=== PATIENT | male | born 1975 | race Caucasian/White ===

== ENCOUNTER 2016-09-05 17:19 | Inpatient (IN) | payer OTHER ==
[~2016-09-05] VITALS: Ht 190.5 cm; Wt 84.8 kg
[~2016-09-05 17:19] MED LIST: CHLORDIAZEPOXID25 MG PO; COUMADIN5 MG PO; DEPAKOTE250 MG PO; DEPAKOTE500 MG PO; ENOXAPARIN100 MG/1 M SC; FENTANYL1 EAC4 TD; FLEXERIL5 MG PO; FOLIC ACID1 MG PO; Habitrol,Nicoderm CQ TD; KEFLEX500 MG PO; KEPPRA500 MG PO; LEVETIRACETAM500 MG PO; LIBRIUM25 MG PO; LOVENOX80 MG/0.8 SC; Levaquin PO; METHADONE10 MG PO; METHADONE5 MG PO; MOTRIN600 MG PO; NEURONTIN100 MG PO; NICOTINE PATCH1 EAC2 TD; OXYCODONE HCL5 MG PO; OXYCODONE-APAP1 EACH PO; OXYCONTIN10 MG PO; PERCOCET 5/31 TABLET PO; POTASSIUM-9999 MG PO; PROAIR HFA8.5 GM IH; THIAMINE HCL100 MG PO; VITAMIN B-1100 MG PO; WARFARIN SODIU7.5 MG PO; WARFARIN SODIUM5 MG PO
[2016-09-05 20:20] LABS: HEMATOCRIT 40.9 % (38.0-50.0); MCH 33.5 PG (29.0-34.0); MCHC 34.7 G/DL (30.0-36.0); MCV 96.5 FL (86-99); MEAN PLAT.VOLUME 9.8 uM^3 (9.0-12.4); PLATELET COUNT 385 K/uL (156-360); RBC DIS.WIDTH-CV 12.2 % (11.8-14.6); RBC DIS.WIDTH-SD 41.7 % (39-53); RED BLOOD COUNT 4.24 M/uL (4.00-5.50); WHITE BLOOD COUNT 16.3 K/uL (4.1-10.2)
[2016-09-05 20:31] LABS: CHLORIDE 109 mEq/L (99-109); POTASSIUM 3.6 mEq/L (3.7-5.4); SODIUM 140 mEq/L (136-147)
[2016-09-05 20:33] LABS: GLUCOSE 96 mg/dL (70-99); INTER. NORMALIZED RATIO 2.3; PROTHROMBIN TIME 24.1 (9.2-11.2); PTT 40.6 (25-32)
[2016-09-05 20:35] LABS: ANION GAP 13 MEQ/L (2-14)
[2016-09-05 20:37] LABS: GFR ESTIMATE (CALCULATED) > 59 mL/min/
[2016-09-05 20:38] LABS: UREA NITROGEN (BUN) 11 mg/dL (9-23)
[2016-09-05] MEDS ORDERED: WARFARIN SODIUM10 MG PO ×2 (22:21)
[2016-09-05] MEDS ORDERED: VENTOLIN HFA18 GM IH (22:22)
[2016-09-05 23:49] VITALS: BP 125/75
[2016-09-06 05:10] VITALS: BP 126/80
[2016-09-06 06:40] LABS: HEMATOCRIT 36.6 % (38.0-50.0); MCH 33.5 PG (29.0-34.0); MCHC 34.2 G/DL (30.0-36.0); MCV 98.1 FL (86-99); MEAN PLAT.VOLUME 10.2 uM^3 (9.0-12.4); PLATELET COUNT 340 K/uL (156-360); RBC DIS.WIDTH-CV 12.6 % (11.8-14.6); RBC DIS.WIDTH-SD 44.9 % (39-53); RED BLOOD COUNT 3.73 M/uL (4.00-5.50)
[2016-09-06 06:41] LABS: WHITE BLOOD COUNT 11.3 K/uL (4.1-10.2)
[2016-09-06 06:42] LABS: INTER. NORMALIZED RATIO 2.6; PROTHROMBIN TIME 27.6 (9.2-11.2)
[2016-09-06 06:59] LABS: ALKALINE PHOSPHATASE 48 IU/L (3-129); ANION GAP 8 MEQ/L (2-14); CHLORIDE 109 MEQ/L (99-109); GFR ESTIMATE (CALCULATED) > 59 mL/min/; GLUCOSE 89 mg/dL (70-99); POTASSIUM 3.4 MEQ/L (3.7-5.4); SAMPLE HEMOLYSIS CHECK 0; SAMPLE ICTERIC CHECK 0; SAMPLE LIPEMIA CHECK 0; SODIUM 140 MEQ/L (136-147); TOTAL BILIRUBIN 0.9 MG/DL (0.0-1.0); UREA NITROGEN (BUN) 11 mg/dL (9-23)
[2016-09-06 12:00] VITALS: BP 136/87
[2016-09-06 16:00] VITALS: BP 131/62
[2016-09-06 21:00] VITALS: BP 143/76
[2016-09-06 23:58] VITALS: BP 129/73
[2016-09-07 03:30] LABS: HEMATOCRIT 40.1 % (38.0-50.0); MCH 32.9 PG (29.0-34.0); MCHC 33.7 G/DL (30.0-36.0); MCV 97.8 FL (86-99); MEAN PLAT.VOLUME 9.5 uM^3 (9.0-12.4); PLATELET COUNT 374 K/uL (156-360); RBC DIS.WIDTH-CV 12.2 % (11.8-14.6); RBC DIS.WIDTH-SD 42.1 % (39-53); WHITE BLOOD COUNT 16.1 K/uL (4.1-10.2)
[2016-09-07 03:34] LABS: CHLORIDE 106 mEq/L (99-109); SODIUM 139 mEq/L (136-147)
[2016-09-07 03:35] LABS: GLUCOSE 97 mg/dL (70-99)
[2016-09-07 03:37] LABS: ANION GAP 9 MEQ/L (2-14)
[2016-09-07 03:39] LABS: GFR ESTIMATE (CALCULATED) > 59 mL/min/; INTER. NORMALIZED RATIO 4.3; PROTHROMBIN TIME 45.4 (9.2-11.2)
[2016-09-07 03:40] LABS: UREA NITROGEN (BUN) 6 mg/dL (9-23)
[2016-09-07 03:56] VITALS: BP 128/85
[2016-09-07 07:30] VITALS: BP 125/70
[2016-09-07 11:51] VITALS: BP 129/79
[2016-09-07 16:45] VITALS: BP 143/99
[2016-09-07 20:23] VITALS: BP 130/85
[2016-09-07 23:10] VITALS: BP 136/98
[2016-09-08] VITALS (7 sets, daily range): BP systolic 128–157; BP diastolic 67–108
[2016-09-08 05:55] LABS: HEMATOCRIT 39.2 % (38.0-50.0); MCH 33.3 PG (29.0-34.0); MCHC 34.4 G/DL (30.0-36.0); MCV 96.6 FL (86-99); PLATELET COUNT 378 K/uL (156-360); RBC DIS.WIDTH-CV 12.4 % (11.8-14.6); RBC DIS.WIDTH-SD 43.5 % (39-53); RED BLOOD COUNT 4.06 M/uL (4.00-5.50); WHITE BLOOD COUNT 14.3 K/uL (4.1-10.2)
[2016-09-08 06:09] LABS: INTER. NORMALIZED RATIO 3.4; PROTHROMBIN TIME 36.2 (9.2-11.2)
[2016-09-08 06:23] LABS: ANION GAP 10 MEQ/L (2-14); CHLORIDE 102 MEQ/L (99-109); GFR ESTIMATE (CALCULATED) > 59 mL/min/; GLUCOSE 103 mg/dL (70-99); POTASSIUM 3.6 MEQ/L (3.7-5.4); SAMPLE HEMOLYSIS CHECK 0; SAMPLE ICTERIC CHECK 0; SAMPLE LIPEMIA CHECK 0; SODIUM 138 MEQ/L (136-147); UREA NITROGEN (BUN) 7 mg/dL (9-23)
[2016-09-09 03:42] VITALS: BP 151/101
[2016-09-09 06:38] LABS: INTER. NORMALIZED RATIO 3.1; PROTHROMBIN TIME 32.3 (9.2-11.2)
[2016-09-09 08:21] VITALS: BP 135/99
[2016-09-09 11:01] LABS: HEMATOCRIT 38.3 % (38.0-50.0); MCHC 33.7 G/DL (30.0-36.0); MEAN PLAT.VOLUME 9.6 uM^3 (9.0-12.4); PLATELET COUNT 395 K/uL (156-360); RBC DIS.WIDTH-CV 12.3 % (11.8-14.6); RBC DIS.WIDTH-SD 43.7 % (39-53); RED BLOOD COUNT 3.91 M/uL (4.00-5.50); WHITE BLOOD COUNT 16.6 K/uL (4.1-10.2)
[2016-09-09 11:35] LABS: ANION GAP 14 MEQ/L (2-14); CHLORIDE 101 MEQ/L (99-109); SAMPLE HEMOLYSIS CHECK 0; SAMPLE ICTERIC CHECK 0; SAMPLE LIPEMIA CHECK 0; SODIUM 140 MEQ/L (136-147)
[2016-09-09 11:40] LABS: GFR ESTIMATE (CALCULATED) > 59 mL/min/; GLUCOSE 106 mg/dL (70-99); UREA NITROGEN (BUN) 8 mg/dL (9-23)
[2016-09-09 11:43] VITALS: BP 141/90
[2016-09-09 17:17] VITALS: BP 140/86
[2016-09-09 19:52] VITALS: BP 140/91
[2016-09-09 23:28] VITALS: BP 133/76
[2016-09-10 03:56] VITALS: BP 139/100
[2016-09-10 05:24] VITALS: BP 118/76
[2016-09-10 06:59] LABS: MCH 32.5 PG (29.0-34.0); MCHC 33.2 G/DL (30.0-36.0); MCV 97.7 FL (86-99); MEAN PLAT.VOLUME 9.8 uM^3 (9.0-12.4); PLATELET COUNT 388 K/uL (156-360); RBC DIS.WIDTH-CV 12.2 % (11.8-14.6); RBC DIS.WIDTH-SD 43.4 % (39-53); RED BLOOD COUNT 3.48 M/uL (4.00-5.50); WHITE BLOOD COUNT 9.3 K/uL (4.1-10.2)
[2016-09-10 07:01] LABS: INTER. NORMALIZED RATIO 2.6; PROTHROMBIN TIME 27.2 (9.2-11.2)
[2016-09-10 07:13] LABS: ANION GAP 8 MEQ/L (2-14); CHLORIDE 106 MEQ/L (99-109); GFR ESTIMATE (CALCULATED) > 59 mL/min/; GLUCOSE 87 mg/dL (70-99); POTASSIUM 4.1 MEQ/L (3.7-5.4); SAMPLE HEMOLYSIS CHECK 0; SAMPLE ICTERIC CHECK 0; SAMPLE LIPEMIA CHECK 0; SODIUM 140 MEQ/L (136-147); UREA NITROGEN (BUN) 8 mg/dL (9-23)
[2016-09-10 07:14] VITALS: BP 136/84
[2016-09-10 15:37] VITALS: BP 140/92
[2016-09-10 20:03] VITALS: BP 150/98
[2016-09-10 23:18] VITALS: BP 154/89
[2016-09-11 03:56] VITALS: BP 123/79
[2016-09-11 05:38] LABS: INTER. NORMALIZED RATIO 2.3; PROTHROMBIN TIME 24.5 (9.2-11.2)
[2016-09-11 08:17] VITALS: BP 113/74
[2016-09-11 10:15] LABS: HEMATOCRIT 35.9 % (38.0-50.0); MCH 33.4 PG (29.0-34.0); MCHC 34.5 G/DL (30.0-36.0); MCV 96.8 FL (86-99); MEAN PLAT.VOLUME 9.8 uM^3 (9.0-12.4); PLATELET COUNT 434 K/uL (156-360); RBC DIS.WIDTH-SD 42.5 % (39-53); RED BLOOD COUNT 3.71 M/uL (4.00-5.50); WHITE BLOOD COUNT 10.4 K/uL (4.1-10.2)
[2016-09-11 10:30] LABS: ANION GAP 10 MEQ/L (2-14); CHLORIDE 105 MEQ/L (99-109); GFR ESTIMATE (CALCULATED) > 59 mL/min/; GLUCOSE 97 mg/dL (70-99); POTASSIUM 4.4 MEQ/L (3.7-5.4); SAMPLE HEMOLYSIS CHECK 0; SAMPLE ICTERIC CHECK 0; SAMPLE LIPEMIA CHECK 0; SODIUM 140 MEQ/L (136-147); UREA NITROGEN (BUN) 8 mg/dL (9-23)
[2016-09-11 10:43] VITALS: BP 140/91
[2016-09-11 15:59] VITALS: BP 142/84
[2016-09-11 19:44] VITALS: BP 139/97
[2016-09-11 23:53] VITALS: BP 143/80
[2016-09-12 03:56] VITALS: BP 131/88
[2016-09-12 04:04] VITALS: BP 148/89
[2016-09-12 06:03] LABS: HEMATOCRIT 36.7 % (38.0-50.0); MCHC 34.1 G/DL (30.0-36.0); MCV 96.8 FL (86-99); MEAN PLAT.VOLUME 9.9 uM^3 (9.0-12.4); PLATELET COUNT 449 K/uL (156-360); RBC DIS.WIDTH-SD 42.4 % (39-53); RED BLOOD COUNT 3.79 M/uL (4.00-5.50); WHITE BLOOD COUNT 7.5 K/uL (4.1-10.2)
[2016-09-12 06:13] LABS: PROTHROMBIN TIME 20.3 (9.2-11.2)
[2016-09-12 06:39] LABS: ANION GAP 8 MEQ/L (2-14); CHLORIDE 105 MEQ/L (99-109); GFR ESTIMATE (CALCULATED) > 59 mL/min/; GLUCOSE 90 mg/dL (70-99); POTASSIUM 3.7 MEQ/L (3.7-5.4); SAMPLE HEMOLYSIS CHECK 0; SAMPLE ICTERIC CHECK 0; SAMPLE LIPEMIA CHECK 0; SODIUM 139 MEQ/L (136-147); UREA NITROGEN (BUN) 7 mg/dL (9-23)
[2016-09-12 08:34] VITALS: BP 117/72
[2016-09-12 11:44] VITALS: BP 129/87
[2016-09-12] MEDS ORDERED: CLEOCIN150 MG PO (14:30)
[2016-09-12] MEDS ORDERED: NICOTINE PATCH1 EAC2 TD (14:30)
[2016-09-12] MEDS ORDERED: ENDOCET 5-3251 EACH PO (14:30)
== END 2016-09-12 15:32 | disposition home or self-care (01) | DRG 158 ==
LOC: EME 17:19 → EDOF 22:18 → 5WEST 22:18 → 3EAST 09-07 11:44 → 5WEST 09-07 11:44 → 3EAST 09-07 20:02
PROVIDERS: Internal Medicine; Physician Assistant
DX: K12.2 Cellulitis and abscess of mouth (principal); L03.211 Cellulitis of face; L03.221 Cellulitis of neck; M27.2 Inflammatory conditions of jaws; Z90.81 Acquired absence of spleen; B95.61 Methicillin susceptible Staphylococcus aureus infection as the cause of diseases classified elsewhere; F17.210 Nicotine dependence, cigarettes, uncomplicated; G89.29 Other chronic pain; D72.829 Elevated white blood cell count, unspecified; Z88.0 Allergy status to penicillin; Z88.1 Allergy status to other antibiotic agents; Z88.5 Allergy status to narcotic agent; K04.7 Periapical abscess without sinus; K02.9 Dental caries, unspecified; Z79.01 Long term (current) use of anticoagulants; Z86.718 Personal history of other venous thrombosis and embolism; E78.5 Hyperlipidemia, unspecified; G40.909 Epilepsy, unspecified, not intractable, without status epilepticus; E87.6 Hypokalemia; M47.896 Other spondylosis, lumbar region; J45.909 Unspecified asthma, uncomplicated; R25.2 Cramp and spasm; F12.90 Cannabis use, unspecified, uncomplicated
CPT/HCPCS: 70487; 80048; 80053; 80202; 83605; 85027; 85610; 85730; 87040; 90732; 99202; 99281; 99284; G0009; G0378; J1170; J1200; J1885; J2405; J3010; J3370; J3480; J7030; S0028

== ENCOUNTER 2017-02-25 15:55 | Inpatient (IN) | payer OTHER ==
[~2017-02-25] VITALS: Ht 190.5 cm; Wt 87.2 kg
[~2017-02-25 15:55] MED LIST changes: +CLEOCIN150 MG PO; +ENDOCET 5-3251 EACH PO; +VENTOLIN HFA18 GM IH; +WARFARIN SODIUM10 MG PO
[2017-02-25 16:31] LABS: HEMATOCRIT 44.4 % (38.0-50.0); MCH 33.8 PG (29.0-34.0); MCHC 34.9 G/DL (30.0-36.0); MCV 96.7 FL (86-99); MEAN PLAT.VOLUME 9.6 uM^3 (9.0-12.4); PLATELET COUNT 393 K/uL (156-360); RBC DIS.WIDTH-CV 14.2 % (11.8-14.6); RBC DIS.WIDTH-SD 51.3 % (39-53); RED BLOOD COUNT 4.59 M/uL (4.00-5.50); WHITE BLOOD COUNT 17.3 K/uL (4.1-10.2)
[2017-02-25 16:40] LABS: INTER. NORMALIZED RATIO 1.4; PROTHROMBIN TIME 14.9 (9.2-11.2)
[2017-02-25 16:42] LABS: CHLORIDE 108 mEq/L (99-109); POTASSIUM 3.8 mEq/L (3.7-5.4); SODIUM 139 mEq/L (136-147)
[2017-02-25 16:44] LABS: GLUCOSE 98 mg/dL (70-99)
[2017-02-25 16:45] LABS: ANION GAP 8 MEQ/L (2-14)
[2017-02-25 16:48] LABS: GFR ESTIMATE (CALCULATED) > 59 mL/min/
[2017-02-25 16:49] LABS: UREA NITROGEN (BUN) 15 mg/dL (9-23)
[2017-02-25] MEDS ORDERED: FOLIC ACID1 MG PO (17:17)
[2017-02-25] MEDS ORDERED: CYANOCOBALAM1000 MCG PO (17:17)
[2017-02-25] MEDS ORDERED: CENTRUM SILVER1 EAC3 PO (17:19)
[2017-02-25] MEDS ORDERED: LAMICTAL25 MG PO (17:19)
[2017-02-25] MEDS ORDERED: CYMBALTA30 MG PO (17:20)
[2017-02-25] MEDS ORDERED: ERGOCALCIF50000 UNIT PO (17:21)
[2017-02-25] MEDS ORDERED: SEROQUEL50 MG PO (17:22)
[2017-02-25] MEDS ORDERED: CYCLOBENZAPRINE10 MG PO (17:23)
[2017-02-25] MEDS ORDERED: WARFARIN SODIUM1 MG PO (17:24)
[2017-02-25] MEDS ORDERED: WARFARIN SODIUM10 MG PO (17:25)
[2017-02-25] MEDS ORDERED: ELAVIL10 MG PO (17:26)
[2017-02-25] MEDS ORDERED: QVAR 80 MCG IN7.3 GM IH (17:27)
[2017-02-25] MEDS ORDERED: LIBRIUM25 MG PO (17:27)
[2017-02-25 17:40] LABS: ADD MIUA? YES; BILIRUBIN NEGATIVE; BLOOD NEGATIVE; COLOR YELLOW ((YELLOW)); GLUCOSE (STRIP) NEGATIVE; KETONES NEGATIVE; LEUKOCYTES NEGATIVE; NITRITE NEGATIVE; PROTEIN (STRIP) NEGATIVE; SPECIFIC GRAVITY 1.018 (1.000-1.030); UROBILINOGEN 0.2 MG/DL (0.2-1.0)
[2017-02-25 17:51] LABS: BACTERIA NONE SEEN /HPF; EPITHELIAL CELLS NONE SEEN /HPF; MUCUS TRACE /LPF; RED BLOOD CELLS 0-5 /HPF (0-5); UCUL ADDED? NO; WHITE BLOOD CELLS 0-5 /HPF (0-5)
[2017-02-25 18:11] LABS: SERUM ETHYL ALCOHOL < 10 mg/dL
[2017-02-25 18:14] LABS: CREATINE KINASE 106 IU/L (1-294); TOTAL CK 106 IU/L (1-294)
[2017-02-25 18:20] LABS: CK-MB 1.4 ng/mL (0.0-4.9)
[2017-02-25 19:36] LABS: AMPHETAMINE NEGATIVE (500 ng/mL); BARBITURATES NEGATIVE (200 ng/mL); BENZODIAZEPINES PRESUMPTIVE POSITIVE (150 ng/mL); COCAINE NEGATIVE (150 ng/mL); METHADONE NEGATIVE (200 ng/mL); METHAMPHETAMINE NEGATIVE (500 ng/mL); OPIATES (MORPHINE) NEGATIVE (100 ng/mL); OXYCODONE NEGATIVE (100 ng/mL); PHENCYCLIDINE NEGATIVE (25 ng/mL); PROPOXYPHENE NEGATIVE (300 ng/mL); THC CANNABINOIDS PRESUMPTIVE POSITIVE (50 ng/mL); TRICYCLIC ANTIDEPRESSANTS PRESUMPTIVE POSITIVE (300 ng/mL)
[2017-02-25 19:37] LABS: ADD MEDTOX COMMENT Y; INTERNAL CONTROLS VALID? YES
[2017-02-25 20:09] LABS: TROP-I INTERPRETATION NEGATIVE; TROPONIN-I < 0.01 ng/mL (0.0-0.30)
[2017-02-25 21:39] LABS: LIPASE 32 U/L (1.0-51.0)
[2017-02-25 22:42] LABS: BENZODIAZEPINES, URINE SCREEN POSITIVE (200 ng/mL)
[2017-02-25] MEDS ORDERED: AFRIN,GENASAL D15 ML BOTH NARES (23:11)
[2017-02-25] MEDS ORDERED: VISINE TEARS DR30 ML BOTH EYES (23:11)
[2017-02-26 04:13] VITALS: BP 132/86
[2017-02-26 08:18] VITALS: BP 125/80
[2017-02-26 09:15] LABS: HEMATOCRIT 44.1 % (38.0-50.0); MCH 32.7 PG (29.0-34.0); MCHC 32.9 G/DL (30.0-36.0); MCV 99.5 FL (86-99); MEAN PLAT.VOLUME 9.7 uM^3 (9.0-12.4); PLATELET COUNT 382 K/uL (156-360); RBC DIS.WIDTH-CV 14.6 % (11.8-14.6); RBC DIS.WIDTH-SD 53.8 % (39-53); RED BLOOD COUNT 4.43 M/uL (4.00-5.50)
[2017-02-26 11:56] VITALS: BP 127/69
[2017-02-26 16:02] LABS: HEMATOCRIT 39.2 % (38.0-50.0); MCH 34.4 PG (29.0-34.0); MCHC 34.4 G/DL (30.0-36.0); MCV 99.7 FL (86-99); MEAN PLAT.VOLUME 9.8 uM^3 (9.0-12.4); PLATELET COUNT 345 K/uL (156-360); RBC DIS.WIDTH-CV 14.6 % (11.8-14.6); RBC DIS.WIDTH-SD 53.7 % (39-53); RED BLOOD COUNT 3.93 M/uL (4.00-5.50); WHITE BLOOD COUNT 11.2 K/uL (4.1-10.2)
[2017-02-26 16:04] VITALS: BP 117/65
[2017-02-26 19:47] VITALS: BP 129/77
[2017-02-26 23:48] VITALS: BP 116/75
[2017-02-27 01:21] LABS: HEMATOCRIT 40.4 % (38.0-50.0); MCH 34.2 PG (29.0-34.0); MCHC 34.4 G/DL (30.0-36.0); MCV 99.5 FL (86-99); PLATELET COUNT 372 K/uL (156-360); RBC DIS.WIDTH-CV 14.4 % (11.8-14.6); RBC DIS.WIDTH-SD 53.1 % (39-53); RED BLOOD COUNT 4.06 M/uL (4.00-5.50); WHITE BLOOD COUNT 10.8 K/uL (4.1-10.2)
[2017-02-27 04:45] VITALS: BP 115/75
[2017-02-27 06:46] LABS: BASOPHIL COUNT 0.1 K/uL (0-0.1); EOSINOPHIL (%) 1.4 % (0-5); EOSINOPHIL COUNT 0.2 K/uL (0-0.3); HEMATOCRIT 40.9 % (38.0-50.0); IMMATURE GRANULOCYTE (%) 0.3 % (0.0-0.7); INSTRUMENT ABS NEUTROPHIL CT 5.3 K/uL; LYMPHOCYTE COUNT 4.8 K/uL (1.0-2.8); MEAN PLAT.VOLUME 9.9 uM^3 (9.0-12.4); MONOCYTE (%) 11.6 % (3-12); MONOCYTE COUNT 1.4 K/uL (0-0.8); NEUTROPHIL (%) 45.1 % (45-76); NEUTROPHIL COUNT 5.3 K/uL (1.8-6.4); PLATELET COUNT 351 K/uL (156-360); RBC DIS.WIDTH-CV 14.4 % (11.8-14.6); RBC DIS.WIDTH-SD 53.3 % (39-53); RED BLOOD COUNT 4.09 M/uL (4.00-5.50); WHITE BLOOD COUNT 11.8 K/uL (4.1-10.2)
[2017-02-27 07:29] LABS: ANION GAP 5 MEQ/L (2-14); CHLORIDE 107 MEQ/L (99-109); GFR ESTIMATE (CALCULATED) > 59 mL/min/; GLUCOSE 87 mg/dL (70-99); POTASSIUM 4.5 MEQ/L (3.7-5.4); SAMPLE HEMOLYSIS CHECK 0; SAMPLE ICTERIC CHECK 0; SAMPLE LIPEMIA CHECK 0; SODIUM 140 MEQ/L (136-147); UREA NITROGEN (BUN) 9 mg/dL (9-23)
[2017-02-27 08:28] VITALS: BP 128/89
[2017-02-27 11:38] VITALS: BP 121/70
[2017-02-27 15:33] LABS: INTER. NORMALIZED RATIO 1.9; PROTHROMBIN TIME 19.8 (9.2-11.2)
[2017-02-27 16:14] VITALS: BP 141/93
[2017-02-27 19:40] VITALS: BP 137/88
[2017-02-28] VITALS: BP 121/70
[2017-02-28 04:44] VITALS: BP 121/67
[2017-02-28 06:52] LABS: HEMATOCRIT 42.3 % (38.0-50.0); MCH 33.4 PG (29.0-34.0); MCHC 33.6 G/DL (30.0-36.0); MCV 99.5 FL (86-99); PLATELET COUNT 392 K/uL (156-360); RBC DIS.WIDTH-CV 13.8 % (11.8-14.6); RBC DIS.WIDTH-SD 51.2 % (39-53); RED BLOOD COUNT 4.25 M/uL (4.00-5.50); WHITE BLOOD COUNT 11.4 K/uL (4.1-10.2)
[2017-02-28 07:15] LABS: INTER. NORMALIZED RATIO 1.6; PROTHROMBIN TIME 16.1 (9.2-11.2)
[2017-02-28 07:20] LABS: ALKALINE PHOSPHATASE 49 IU/L (3-129); DIRECT BILIRUBIN 0.1 mg/dL (0.0-0.3); TOTAL BILIRUBIN 0.4 MG/DL (0.0-1.0)
[2017-02-28 08:17] VITALS: BP 133/96
[2017-02-28 12:09] VITALS: BP 124/77
[2017-02-28] MEDS ORDERED: COUMADIN5 MG PO (12:57)
[2017-02-28] MEDS ORDERED: NICOTINE PATCH1 EAC2 TD (12:57)
[2017-02-28] MEDS ORDERED: LAMICTAL25 MG PO (12:58)
[2017-02-28] MEDS ORDERED: OXYCODONE HCL5 MG PO (12:59)
== END 2017-02-28 14:29 | disposition home or self-care (01) | DRG 644 ==
LOC: EME 15:55 → 3EAST 02-26 01:19 → EDOF 02-26 01:19 → 3EAST 02-26 03:40
PROVIDERS: Hospitalist; Internal Medicine; Nurse Practitioner Family
DX: E27.49 Other adrenocortical insufficiency (principal); G40.909 Epilepsy, unspecified, not intractable, without status epilepticus; R55 Syncope and collapse; F10.20 Alcohol dependence, uncomplicated; S00.81XA Abrasion of other part of head, initial encounter; Q89.01 Asplenia (congenital); W19.XXXA Unspecified fall, initial encounter; F17.210 Nicotine dependence, cigarettes, uncomplicated; R91.8 Other nonspecific abnormal finding of lung field; I10 Essential (primary) hypertension; J44.9 Chronic obstructive pulmonary disease, unspecified; Y92.009 Unspecified place in unspecified non-institutional (private) residence as the place of occurrence of the external cause; M47.816 Spondylosis without myelopathy or radiculopathy, lumbar region; M79.7 Fibromyalgia; F12.90 Cannabis use, unspecified, uncomplicated; F31.9 Bipolar disorder, unspecified; D72.829 Elevated white blood cell count, unspecified; E78.5 Hyperlipidemia, unspecified; H93.19 Tinnitus, unspecified ear; Z90.81 Acquired absence of spleen; Z86.718 Personal history of other venous thrombosis and embolism; Z79.01 Long term (current) use of anticoagulants; Z85.9 Personal history of malignant neoplasm, unspecified
CPT/HCPCS: 70450; 71275; 73110; 73130; 73564; 74177; 80048; 80076; 81003; 82024 90; 82533 91; 82550; 82553; 83690; 84484; 84999; 85025; 85027; 85610; 85730; 93005; 93306; 93880; 94640; 94640 76; 94760; 95819; 99202; 99281; 99285; G0480; J1170; J1200; J1885; J2270; J2405; J2765; J3010; J7030

== ENCOUNTER 2017-04-16 23:06 | Inpatient (IN) | payer OTHER ==
[~2017-04-16] VITALS: Ht 182.9 cm; Wt 87.6 kg
[~2017-04-16 23:06] MED LIST changes: +AFRIN,GENASAL D15 ML BOTH NARES; +CENTRUM SILVER1 EAC3 PO; +CYANOCOBALAM1000 MCG PO; +CYCLOBENZAPRINE10 MG PO; +CYMBALTA60 MG PO; +ELAVIL10 MG PO; +ERGOCALCIF50000 UNIT PO; +LAMICTAL25 MG PO; +QVAR 80 MCG IN7.3 GM IH; +SEROQUEL50 MG PO; +VISINE TEARS DR30 ML BOTH EYES; +WARFARIN SODIUM1 MG PO
[2017-04-17 00:08] LABS: HEMATOCRIT 41.1 % (38.0-50.0); MCHC 34.8 G/DL (30.0-36.0); MCV 94.9 FL (86-99); MEAN PLAT.VOLUME 9.5 uM^3 (9.0-12.4); PLATELET COUNT 387 K/uL (156-360); RBC DIS.WIDTH-CV 13.2 % (11.8-14.6); RBC DIS.WIDTH-SD 46.5 % (39-53); RED BLOOD COUNT 4.33 M/uL (4.00-5.50); WHITE BLOOD COUNT 16.6 K/uL (4.1-10.2)
[2017-04-17 00:20] LABS: CHLORIDE 106 mEq/L (99-109); POTASSIUM 4.2 mEq/L (3.7-5.4); SODIUM 138 mEq/L (136-147)
[2017-04-17 00:22] LABS: GLUCOSE 101 mg/dL (70-99)
[2017-04-17 00:23] LABS: ANION GAP 9 MEQ/L (2-14); PROTHROMBIN TIME 61.5 SEC (10.2-12.9)
[2017-04-17 00:24] LABS: INTER. NORMALIZED RATIO 5.2; TOTAL BILIRUBIN 0.3 mg/dL (0.0-1.0)
[2017-04-17 00:25] LABS: ALKALINE PHOSPHATASE 68 IU/L (3-129)
[2017-04-17 00:26] LABS: GFR ESTIMATE (CALCULATED) > 59 mL/min/
[2017-04-17 00:27] LABS: UREA NITROGEN (BUN) 16 mg/dL (9-23)
[2017-04-17 00:29] LABS: LIPASE 42 U/L (1.0-51.0)
[2017-04-17 01:14] LABS: ADD MIUA? YES; BILIRUBIN NEGATIVE; BLOOD LARGE; COLOR YELLOW ((YELLOW)); GLUCOSE (STRIP) NEGATIVE; KETONES NEGATIVE; LEUKOCYTES NEGATIVE; NITRITE NEGATIVE; PROTEIN (STRIP) 30; SPECIFIC GRAVITY 1.016 (1.000-1.030); UROBILINOGEN 0.2 MG/DL (0.2-1.0)
[2017-04-17 01:32] LABS: BACTERIA NONE SEEN /HPF; EPITHELIAL CELLS NONE SEEN /HPF; MUCUS TRACE /LPF; RED BLOOD CELLS TNTC /HPF (0-5); UCUL ADDED? YES; WHITE BLOOD CELLS 0-5 /HPF (0-5)
[2017-04-17] MEDS ORDERED: COUMADIN10 MG PO (01:45)
[2017-04-17] MEDS ORDERED: OXYCODONE HCL5 MG PO (01:46)
[2017-04-17] MEDS ORDERED: COUMADIN1 MG PO (01:46)
[2017-04-17] MEDS ORDERED: LORZONE750 MG PO (01:47)
[2017-04-17] MEDS ORDERED: QVAR 80 MCG IN7.3 GM IH (01:48)
[2017-04-17] MEDS ORDERED: BUSPAR7.5 MG PO (01:48)
[2017-04-17 05:42] VITALS: BP 103/58
[2017-04-17 06:02] LABS: HEMATOCRIT 39.6 % (38.0-50.0); MCH 33.2 PG (29.0-34.0); MCHC 34.1 G/DL (30.0-36.0); MCV 97.3 FL (86-99); MEAN PLAT.VOLUME 9.5 uM^3 (9.0-12.4); PLATELET COUNT 370 K/uL (156-360); RBC DIS.WIDTH-CV 13.7 % (11.8-14.6); RBC DIS.WIDTH-SD 48.8 % (39-53); RED BLOOD COUNT 4.07 M/uL (4.00-5.50); WHITE BLOOD COUNT 14.5 K/uL (4.1-10.2)
[2017-04-17 07:00] LABS: PROTHROMBIN TIME 68.7 SEC (10.2-12.9)
[2017-04-17 07:07] LABS: INTER. NORMALIZED RATIO 5.8
[2017-04-17 07:18] LABS: ANION GAP 5 MEQ/L (2-14); CHLORIDE 108 MEQ/L (99-109); GFR ESTIMATE (CALCULATED) > 59 mL/min/; GLUCOSE 104 mg/dL (70-99); POTASSIUM 4.4 MEQ/L (3.7-5.4); SAMPLE HEMOLYSIS CHECK 0; SAMPLE ICTERIC CHECK 0; SAMPLE LIPEMIA CHECK 0; SODIUM 142 MEQ/L (136-147); UREA NITROGEN (BUN) 14 mg/dL (9-23)
[2017-04-17 11:29] LABS: LIPASE 41 U/L (1.0-51.0)
[2017-04-17 11:44] VITALS: BP 102/59
[2017-04-17 16:24] VITALS: BP 123/76
[2017-04-17 19:35] VITALS: BP 130/72
[2017-04-18 00:12] VITALS: BP 113/65
[2017-04-18 06:46] LABS: INTER. NORMALIZED RATIO 3.3
[2017-04-18 08:19] VITALS: BP 135/92
[2017-04-18 08:49] LABS: HEMATOCRIT 43.4 % (38.0-50.0); MCH 33.4 PG (29.0-34.0); MCHC 34.3 G/DL (30.0-36.0); MCV 97.3 FL (86-99); MEAN PLAT.VOLUME 9.7 uM^3 (9.0-12.4); PLATELET COUNT 414 K/uL (156-360); RBC DIS.WIDTH-CV 13.5 % (11.8-14.6); RBC DIS.WIDTH-SD 48.5 % (39-53); RED BLOOD COUNT 4.46 M/uL (4.00-5.50); WHITE BLOOD COUNT 10.4 K/uL (4.1-10.2)
[2017-04-18 11:46] VITALS: BP 135/92
== END 2017-04-18 14:01 | disposition home or self-care (01) | DRG 813 ==
LOC: EME 23:06 → EDOF 04-17 03:20 → ENRESERV 04-17 03:22 → 3EAST 04-17 04:30
PROVIDERS: Internal Medicine; Nurse Practitioner Adult Health; Physician Assistant
DX: D68.32 Hemorrhagic disorder due to extrinsic circulating anticoagulants (principal); D73.5 Infarction of spleen; D68.62 Lupus anticoagulant syndrome; R31.9 Hematuria, unspecified; M79.7 Fibromyalgia; Z79.01 Long term (current) use of anticoagulants; G40.909 Epilepsy, unspecified, not intractable, without status epilepticus; G89.29 Other chronic pain; M47.816 Spondylosis without myelopathy or radiculopathy, lumbar region; F10.10 Alcohol abuse, uncomplicated; D72.829 Elevated white blood cell count, unspecified; E78.5 Hyperlipidemia, unspecified; F17.200 Nicotine dependence, unspecified, uncomplicated; I10 Essential (primary) hypertension; J44.9 Chronic obstructive pulmonary disease, unspecified; F12.10 Cannabis abuse, uncomplicated; Z79.899 Other long term (current) drug therapy; Z90.81 Acquired absence of spleen
CPT/HCPCS: 74176; 76770; 80048; 80053; 81003; 83690; 85027; 85610; 87086; 94640; 94640 76; 99202; 99281; 99284; J2270; J2405; J7030

== ENCOUNTER 2017-11-20 13:03 | Emergency (ER) | payer OTHER ==
[~2017-11-20] VITALS: Ht 190.5 cm; Wt 87.5 kg
[~2017-11-20 13:03] MED LIST changes: +BUSPAR7.5 MG PO; +COUMADIN1 MG PO; +COUMADIN10 MG PO; +LORZONE750 MG PO
[2017-11-20 13:57] LABS: BASOPHIL (%) 0.3 % (0-1); EOSINOPHIL (%) 0.6 % (0-5); EOSINOPHIL COUNT 0.1 K/uL (0-0.3); HEMATOCRIT 42.3 % (38.0-50.0); HEMOGLOBIN 14.7 G/DL (12.5-16.6); IMMATURE GRANULOCYTE (%) 0.4 % (0.0-0.7); LYMPHOCYTE (%) 37.5 % (15-42); LYMPHOCYTE COUNT 3.8 K/uL (1.0-2.8); MCH 33.3 PG (29.0-34.0); MCHC 34.8 G/DL (30.0-36.0); MCV 95.9 FL (86-99); MONOCYTE (%) 11.5 % (3-12); MONOCYTE COUNT 1.2 K/uL (0-0.8); NEUTROPHIL (%) 49.7 % (45-76); NRBC (%) 0.2 /100 WBC (0-0); PLATELET COUNT 337 K/uL (156-360); RBC DIS.WIDTH-CV 14.4 % (11.8-14.6); RBC DIS.WIDTH-SD 50.7 % (39-53); RED BLOOD COUNT 4.41 M/uL (4.00-5.50)
[2017-11-20 14:06] LABS: ALBUMIN 4.3 g/dL (3.2-4.8); CHLORIDE 105 mEq/L (99-109); POTASSIUM 3.9 mEq/L (3.7-5.4); SODIUM 139 mEq/L (136-147)
[2017-11-20 14:07] LABS: MAGNESIUM 2.1 mg/dL (1.3-2.7)
[2017-11-20 14:09] LABS: GLUCOSE 99 mg/dL (70-99); TOTAL PROTEIN 7.4 g/dL (6.4-8.3)
[2017-11-20 14:11] LABS: TOTAL BILIRUBIN 0.6 mg/dL (0.0-1.0)
[2017-11-20 14:12] LABS: ALKALINE PHOSPHATASE 67 IU/L (3-129)
[2017-11-20 14:13] LABS: CREATININE 0.8 mg/dL (0.6-1.3); GFR ESTIMATE (CALCULATED) > 59 mL/min/ (58.99-99999)
[2017-11-20 14:14] LABS: AST (GOT) 22 IU/L (2-34); UREA NITROGEN (BUN) 11 mg/dL (9-23)
[2017-11-20 14:16] LABS: ALT (GPT) 15 IU/L (3-49)
[2017-11-20 14:18] LABS: TROP-I INTERPRETATION NEGATIVE; TROPONIN-I < 0.01 ng/mL (0.0-0.30)
[2017-11-20 14:23] LABS: INTER. NORMALIZED RATIO 1.4
[2017-11-20 15:27] VITALS: BP 124/72
== END 2017-11-20 15:31 | disposition home or self-care (01) ==
LOC: EME 13:03
PROVIDERS: Emergency Medicine
DX: S70.11XA Contusion of right thigh, initial encounter (principal); D68.61 Antiphospholipid syndrome; Z86.718 Personal history of other venous thrombosis and embolism; Z79.01 Long term (current) use of anticoagulants; F17.200 Nicotine dependence, unspecified, uncomplicated; J44.9 Chronic obstructive pulmonary disease, unspecified; E78.5 Hyperlipidemia, unspecified; I10 Essential (primary) hypertension; R56.9 Unspecified convulsions; Z86.73 Personal history of transient ischemic attack (TIA), and cerebral infarction without residual deficits; F31.9 Bipolar disorder, unspecified; Z88.5 Allergy status to narcotic agent; Z88.8 Allergy status to other drugs, medicaments and biological substances; F41.9 Anxiety disorder, unspecified; M79.7 Fibromyalgia
CPT/HCPCS: 80053; 83735; 84484; 85025; 85610; 93005; 93971; 99281; 99284

== ENCOUNTER → 2018-02-15 | Outpatient (CLI) | payer OTHER | END | disposition home or self-care (01) | LOC: NUC 09:00 | DX: M47.897 Other spondylosis, lumbosacral region (principal) | CPT/HCPCS: 78315; A9503 ==